=== PATIENT | female | born 1965 | race Caucasian/White ===

== ENCOUNTER → 2020-04-23 | Outpatient (CLI) | payer BC ==
[2020-04-23 10:53] LABS: HEMOGLOBIN 13.7 gm/dl (12.3-15.3); RED BLOOD COUNT 4.23 M/UL (4.00-5.10); WHITE BLOOD COUNT 8.7 K/UL (4.5-11.0)
[2020-04-23 11:10] LABS: BUN/CREATININE RATIO 13 (0-10)
[2020-04-24 09:10] LABS: FSH, SERUM 22.6 mIU/mL (.)
[2020-04-24 10:10] LABS: VITAMIN D, 25-HYDROXY 50.9 ng/mL (30.0-100.0)
[2020-04-29 05:08] LABS: % FREE TESTOSTERONE (DIALYSIS) 0.5 % (.)
== END ==
LOC: LAB 10:14
PROVIDERS: Nurse Practitioner Family
DX: M54.2 Cervicalgia (principal); N30.10 Interstitial cystitis (chronic) without hematuria; G43.109 Migraine with aura, not intractable, without status migrainosus; K59.00 Constipation, unspecified; E78.5 Hyperlipidemia, unspecified; E53.8 Deficiency of other specified B group vitamins; E55.9 Vitamin D deficiency, unspecified; N95.1 Menopausal and female climacteric states
CPT/HCPCS: 36415; 80053; 80061; 82607; 82670; 83001; 84402; 84403; 84439; 84443; 85025

== ENCOUNTER → 2020-04-29 | Outpatient (CLI) | payer BC | LOC: KOH-I 15:58 | DX: R07.9 Chest pain, unspecified (principal); M54.2 Cervicalgia; M47.812 Spondylosis without myelopathy or radiculopathy, cervical region; M50.322 Other cervical disc degeneration at C5-C6 level | CPT/HCPCS: 71046; 72040 ==

== ENCOUNTER → 2020-06-01 | Outpatient (CLI) | payer BC ==
[2020-06-01 15:30] LABS: HEMOGLOBIN 12.9 gm/dl (12.3-15.3); RED BLOOD COUNT 3.99 M/UL (4.00-5.10); WHITE BLOOD COUNT 10.4 K/UL (4.5-11.0)
[2020-06-01 15:40] LABS: BUN/CREATININE RATIO 17 (0-10)
== END ==
LOC: LAB 14:45
PROVIDERS: Nurse Practitioner Family
DX: R10.9 Unspecified abdominal pain (principal); R11.0 Nausea; M25.50 Pain in unspecified joint; R50.9 Fever, unspecified
CPT/HCPCS: 36415; 80053; 81001; 82150; 83690; 85025; 85652